=== PATIENT | male | born 1985 ===

== ENCOUNTER 2022-03-18 07:45 | Day surgery (SDC) | payer OTHER ==
[~2022-03-18] VITALS: Ht 175.3 cm; Wt 90.3 kg
[~2022-03-18 07:45] MED LIST: Prozac20 MG PO
[2022-03-18] MEDS ORDERED: Prozac20 MG PO (08:33)
--- NOTE | 2022-03-18 08:34 | NUR ---
Ambulatory in Day Surgery History, Chart, Medications and Allergies reviewed before start of procedure. Pre-Op teaching done. Pt verbalizes understanding. Patient States Post-Procedure ride home has been arranged with .
--- NOTE | 2022-03-18 11:20 | NUR ---
Discharge instructions reviewed with patient. Patient verbalizes understanding. Copy given to patient to take home. INCISION C/D/I WITH GAUZE. ICE PACK OVER SITE FOR 15 MIN. PT TOLERATED PO PUDDING, WATER AND JUICE. NORCO GIVEN PER ORDER. Discharged via wheelchair to private car for ride home.
--- NOTE | 2022-03-19 07:51 | NUR ---
03/19/22 0751 Conchis Riley VERIFICATIONS: EDIT CHART.
== END 2022-03-18 23:54 | disposition home or self-care (01) ==
LOC: ORSCMMR 07:45
PROVIDERS: Surgery
PROC: 0YU60JZ Supplement Left Inguinal Region with Synthetic Substitute, Open Approach (ICD-10-PCS; principal; 2022-03-18 09:30)
DX: K40.90 Unilateral inguinal hernia, without obstruction or gangrene, not specified as recurrent (principal); F41.8 Other specified anxiety disorders; Z79.899 Other long term (current) drug therapy
CPT/HCPCS: A9270; C1781; J0690; J2250; J2795

== ENCOUNTER → 2025-02-05 | Outpatient (CLI) | payer OTHER ==
[2025-02-10 13:10] LABS: OVA AND PARASITE,FECAL INTERP Negative (Negative)
== END | disposition home or self-care (01) ==
LOC: LAB 13:00 → LAB SHORT 13:00
PROVIDERS: Family Medicine
DX: K52.838 Other microscopic colitis (principal)
CPT/HCPCS: 87177; 87209

== ENCOUNTER → 2025-02-05 | Outpatient (CLI) | payer OTHER | END | disposition home or self-care (01) | LOC: LAB 12:30 → LAB SHORT 12:30 | DX: K52.838 Other microscopic colitis (principal) | CPT/HCPCS: 87015; 87045; 87046; 87205; 87899 ==